=== PATIENT | male | born 1950 | race Caucasian/White ===

== ENCOUNTER 2016-06-28 14:15 | Emergency (ER) | payer MEDICARE, OTHER ==
[~2016-06-28] VITALS: Ht 172.7 cm; Wt 99.0 kg
[2016-06-28 14:17] VITALS: BP 202/103; PULSE 65; RESP 20; TEMP 97.7; O2SAT 99
--- NOTE | 2016-06-28 15:35 | PD ---
Physical Exam Date Seen by Provider: Jun 28, 2016 Time Seen by Provider: 15:32 Narrative 65 YOWM C/O HTN. MILD GLOBAL KINSEY X [address] DAYS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 H/O KIDNEY STONES/GOUT/GALL STONES INCREASED BP. AWAITING BED PLACEMENT. Data Data Last Documented VS Vital Signs Date Time Temp Pulse Resp B/P Pulse Ox O2 Delivery O2 Flow Rate FiO2 06/28/16 14:17 97.7 65 20 202/103 99 Room Air [facility] Medical Record Reviewed: Yes Supervised Visit with ERIC: Yes Ozzie Reed Jun 28, 2016 15:35
--- NOTE | 2016-06-28 20:09 | PD ---
HPI Chief Complaint: Hypertension Time Seen by Provider: 20:05 Travel History International Travel<30 days: No Contact w/Intl Traveler<30days: No Traveled to known affect area: No History of Present Illness HPI Patient comes in complaining of uncontrolled hypertension. Patient reports he has a history of hypertension but has not took his medication several months however yesterday developed a headache. He checked his blood pressure found it was elevated so he took his medication and his headache went away. Patient states again when he awoke this morning he again had a headache again took his blood pressure medications and his headache went away. Patient denies any pain or headache currently. Denies any chest pain, shortness of breath breath, headache, dizziness, numbness or tingling, abdominal pain, back pain, neck pain , change in vision, or fevers. Patient also reports he's been more stress as his daughter has preeclampsia and is being induced as well as remodeling his house. He reports that he has plenty of blood pressure medicine home though believes it is . Patient reports he supposed to be taking lisinopril/ HCTZ 20/12.5 twice a day. PFS Past Medical History Hypertension: Yes Social History Tobacco Use: No Substance Use: No Allergies-Medications (Allergen,Severity, Reaction): Coded Allergies: No Known Allergies (Unverified , 06/28/16) Reported Meds & Prescriptions Reported Meds & Active Scripts Active Lisinopril-Hctz 20-12.5 Mg Tab 1 Tab PO BID 30 Days Review of Systems Except as stated in HPI: all other systems reviewed are Neg Physical Exam Narrative GENERAL: Well-developed, overly nourished, in no acute distress, and non-ill appearing. SKIN: Focused skin assessment warm and dry. HEAD: Atraumatic. Normocephalic. EYES: Pupils equal and round. EOMI. No scleral icterus. No injection or drainage. ENT: No nasal bleeding or discharge. Mucous membranes pink and moist. NECK: Trachea midline. No JVD. Supple. No nuclear rigidity. CARDIOVASCULAR: Regular rate and rhythm. No murmur appreciated. RESPIRATORY: No accessory muscle use. No respiratory distress. Clear to auscultation. Breath sounds equal bilaterally. GASTROINTESTINAL: Abdomen soft, non-tender, nondistended. Hepatic and splenic margins not palpable. No pulsatile mass. MUSCULOSKELETAL: No obvious deformities. No clubbing. No cyanosis. No edema. Full range of motion. NEUROLOGICAL: Awake and alert. No obvious cranial nerve deficits. Motor grossly within normal limits. Normal speech. PSYCHIATRIC: Appropriate mood and affect; insight and judgment normal. Data Data Last Documented VS Vital Signs Date Time Temp Pulse Resp B/P Pulse Ox O2 Delivery O2 Flow Rate FiO2 06/28/16 20:13 20 98 Room Air 06/28/16 20:13 60 183/96 06/28/16 14:17 97.7 [facility] Medical Decision Making Medical Screen Exam Complete: Yes Emergency Medical Condition: Yes Differential Diagnosis Hypertension, noncompliance, uncontrolled hypertension, other Narrative Course Patient is given the option of having blood work done emergency Department, however patient is going to follow up with his primary care doctor's outpatient for this. The patient presented with a chief complaint of elevated blood pressures. The patient has a prior history of hypertension and admits to noncompliance with their antihypertensive medications. The patient has no symptoms as well. The patient denied headache, changes in vision, nausea, vomiting, dizziness, weakness or loss of sensation. The patient denied and chest, back or abdominal pain. The patient also denied any shortness of breath, dyspnea on exertion, orthopnea or PND. The patient denies any edema to extremities. The patients blood pressures at discharge were at an acceptable level. I discussed with the patient the importance of continuing daily antihypertensive and to not skip doses or stop medications suddenly without instruction by their primary care physician. The patient was instructed to follow up and potential adjustment of blood pressure medications. Return warnings were given to the patient and the patient agreed with plan of care. Patient in no obvious distress upon re-evaluation. I discussed patient with Dr. Ardon prior to discharge, who is in agreement with plan of care and disposition. Patient was asked if they wanted to speak to my attending, which the patient did not wish to do at this time. Any questions/concerns in reference to patient diagnosis/condition discussed and clarified prior to patient's discharge. Reinforced sheer importance of close follow up with patient 's primary physician or primary care clinic. Instructed patient to return to ED immediately, if symptoms return/worsen. Pt showed understanding of above instructions. Further instructions and recommendations were detailed in discharge paperwork. Pt ambulated without difficulty out of ED at discharge. Diagnosis Primary Impression: Hypertension Qualified Code: I10 - Essential hypertension Additional Impression: Medical non-compliance Patient Instructions: Chronic Hypertension (ED), General Instructions Additional Instructions: Follow-up with your primary care physician one to 2 days for reevaluation of your hypertension and possible medication adjustment. Take all medication your blood pressure as prescribed. Return to the emergency department if symptoms get worse. Med/Other Pt SpecificInfo: Prescription(s) given Scripts Lisinopril-Hctz 20-12.5 Mg Tab1 Tab PO BID 30 Days Ref 0 Prov:Negro Ardon MD 06/28/16 Disposition: 01 DISCHARGE HOME Condition: Stable Krish Alvares Jun 28, 2016 20:09 Krish Alvares Jun 28, 2016 20:09
[2016-06-28 20:13] VITALS: BP 183/96; PULSE 60; RESP 18; O2SAT 98
[2016-06-28] MEDS ORDERED: LISI20TA PO (20:19)
== END 2016-06-28 23:40 | disposition home or self-care (01) ==
LOC: NEPE 14:15
DX: I10 Essential (primary) hypertension (principal); Z91.19 Patient's noncompliance with other medical treatment and regimen
CPT/HCPCS: 99282